=== PATIENT | male | born 1975 | race Hispanic/Latino ===

== ENCOUNTER 2016-06-29 09:07 | Emergency (ER) | payer SELFPAY ==
[~2016-06-29] VITALS: Ht 175.3 cm; Wt 107.5 kg
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
== END 2016-06-29 10:03 ==
LOC: ERH 09:07 → EDBD 09:55 → ERH 09:55
DX: S01.01XA Laceration without foreign body of scalp, initial encounter (principal); S61.412A Laceration without foreign body of left hand, initial encounter; S61.214A Laceration without foreign body of right ring finger without damage to nail, initial encounter; S83.92XA Sprain of unspecified site of left knee, initial encounter; S39.012A Strain of muscle, fascia and tendon of lower back, initial encounter; S93.401A Sprain of unspecified ligament of right ankle, initial encounter; V89.2XXA Person injured in unspecified motor-vehicle accident, traffic, initial encounter
CPT/HCPCS: 99282